=== PATIENT | male | born 1960 | race Caucasian/White ===

== ENCOUNTER 2017-01-02 15:38 | Emergency (ER) | payer SELFPAY ==
[2017-01-02 16:30] VITALS: BP 138/92
== END 2017-01-02 16:45 | disposition left against medical advice (07) ==
LOC: ED 15:38
DX: Z04.3 Encounter for examination and observation following other accident (principal); Z53.21 Procedure and treatment not carried out due to patient leaving prior to being seen by health care provider; W19.XXXA Unspecified fall, initial encounter; Y93.9 Activity, unspecified; Y92.9 Unspecified place or not applicable; Y99.9 Unspecified external cause status